=== PATIENT | female | born 1975 | race Caucasian/White ===

== ENCOUNTER 2016-09-18 16:08 | Emergency (ER) | payer SELFPAY ==
[~2016-09-18 16:08] MED LIST: ASMANEX INH; MEDROLPAK4 PO; MOBIC15 MG PO; OMNICEF300 PO; PROAIR HFA INH; PROVENT20 INH; PT DENIES MEDS; SINGULAIR1 PO; SPIRIVA INH; SUDAFED30 MG OR; VICODINTAB PO; XYZAL5 MG OR; ZYRTEC ALLGY10 MG PO; [UNRECOGNIZED DRUG - OTHER]
== END 2016-09-18 18:32 | disposition home or self-care (01) ==
LOC: ER 16:08
DX: S66.911A Strain of unspecified muscle, fascia and tendon at wrist and hand level, right hand, initial encounter (principal); F17.200 Nicotine dependence, unspecified, uncomplicated; Z79.899 Other long term (current) drug therapy; W22.8XXA Striking against or struck by other objects, initial encounter
CPT/HCPCS: 73110-RT; 99283; A9270-GY